=== PATIENT | male | born 1985 | race Two or more races ===

== ENCOUNTER 2024-11-21 12:47 | Emergency (ER) | payer MEDICAID, OTHER ==
[~2024-11-21] VITALS: Ht 180.3 cm; Wt 98.9 kg
--- NOTE | 2024-11-21 13:36 | ED.PDOC ---
History of Present Illness HPI Comments This is a 39 year-old male who presents to the ED with a chief complaint of ETOH withdrawal with associated symptoms of palpitations and dizziness as of today. Patient states he drinks X3 21 packs of beer daily. Patient reports he tried to stop drinking and failed. Patient has no further complaints at this time and otherwise denies N/V/D, fever, chills, weakness, headache, chest pain, or SOB. Chief Complaint: Withdrawal Time Seen by MD: 13:18 Reviewed Notes: Nurses Notes, Medications, Allergies Allergies: Coded Allergies: Chlordiazepoxide (Verified Allergy, Unknown, 11/21/24) Information Source: Patient Mode of Arrival: Ambulatory Severity: Moderate Timing: Hours Duration: Since onset Prehospital treatment: None Past Medical History PAST MEDICAL HISTORY: Denies Surgical History: Denies all surgeries Family History Family History: Reviewed,noncontributory to illness, No family hx of Cancer, No family hx of DM, No family hx of Heart mariela, No family hx of HTN, No family hx ofKidney mariela, No family hx of Liver mariela, No family hx of Lung mariela, No family hx of Stroke Social History Smoker: Cigarettes Alcohol: Heavy Drugs: Marijuana Lives In: Home Constitutional: denies: chills, diaphoresis, fatigue, fever, malaise, sweats, weakness, others EENTM: denies: blurred vision, double vision, ear bleeding, ear discharge, ear drainage, ear pain, ear ringing, eye pain, eye redness, hearing loss, mouth pain, mouth swelling, nasal discharge, nose bleeding, nose congestion, nose pain, photophobia, tearing, throat pain, throat swelling, voice changes, others Respiratory: denies: cough, hemoptysis, orthopnea, SOB at rest, shortness of breath, SOB with excertion, stridor, wheezing, others Cardiovascular: reports: palpitations; denies: chest pain, dizzy spells, diaphoresis, Dyspnea on exertion, edema, irregular heart beat, left arm pain, lightheadedness, PND, syncope, others Gastrointestinal: denies: abdomen distended, abdominal pain, blood streaked bowels, constipated, diarrhea, dysphagia, difficulty swallowing, hematemesis, melena, nausea, poor appetite, poor fluid intake, rectal bleeding, rectal pain, vomiting, others Genitourinary: denies: burning, dysuria, flank pain, frequency, hematuria, incontinence, penile discharge, penile sore, pain, testicle pain, testicle swelling, urgency, others Neurological: reports: dizziness; denies: fainting, headache, left sided n umbness, left sided weakness, numbness, paresthesia, pre-existing deficit, right sided numbness, right sided weakness, seizure, speech problems, tingling, tremors, weakness, others Musculoskeletal: denies: back pain, gout, joint pain, joint swelling, muscle pain, muscle stiffness, neck pain, others Integumetry: denies: bruises, change in color, change in hair/nails, dryness, laceration, lesions, lumps, rash, wounds, others Allergic/Immunocompromised: denies: Difficulty Healing, Frequent Infections, Hives, Itching, others Hematologic/Lymphatic: denies: anemia, blood clots, easy bleeding, easy bruising, swollen glands, others Endocrine: denies: excessive hunger, excessive sweating, excessive thirst, excessive urination, flushing, intolerance to cold, intolerance to heat, unexpl ained weight gain, unexplained weight loss, others Psychiatric: reports: others (Withdrawal ); denies: anxiety, bipolar disorder, depression, hopeless, panic disorder, schizophrenia, sleepless, suicidal All Other Systems: Reviewed and Negative Physical Exam General Appearance: Moderate Distress HEENT: Normal ENT Inspection, Pharynx Normal, TMs Normal Neck: Full Range of Motion, Non-Tender, Normal, Normal Inspection Respiratory: Chest Non-Tender, Lungs Clear, No Accessory Muscle Use, No Respiratory Distress, Normal Breath Sounds Cardiovascular: No Edema, No JVD, No Murmur, No Gallop, Normal Peripheral Pulses, Regular Rate/Rhythm Breast Exam: Deferred Gastrointestinal: No Organomegaly, Non Tender, No Pulsatile Mass, Normal Bowel Sounds, Soft Genitalia: Deferred Pelvic: Deferred Rectal: Deferred Extremities: No calf tenderness, Normal capillary refill, Normal inspection, Normal range of motion, Non-tender, No pedal edema Musculoskeletal : Apperance: Normal Neurologic: Alert, frame changer II-XII nml as Tested, No Motor Deficits, Normal Affect, Normal Mood, No Sensory Deficits Cerebellar Function: Normal Reflexes: Normal Skin: Dry, Normal Color, Warm Peripheral Pulses: 3+ Radial (R), 3+ Radial (L) Lymphatic: No Adenopathy Was a procedure done? Was a procedure done?: No Differential Dx Considerations may include: Anxiety, Withdrawal Symptoms X-Ray, Labs, Meds, VS Vital Signs Date Time Temp Pulse Resp B/P (MAP) Pulse Ox O2 Delivery O2 Flow Rate FiO2 11/21/24 13:07 91 11/21/24 12:53 97.6 103 16 117/75 96 97.6 Lab Test 11/21/24 13:13 Range/Units White Blood Count 6.3 4.4-10.8 10^3/uL Red Blood Count 5.25 4.5-5.90 10^6/uL Hemoglobin 15.5 13.5-17.5 g/dL Hematocrit 47.4 41.0-53.0 % Mean Corpuscular Volume 90.3 80.0-100.0 fL Mean Corpuscular Hemoglobin 29.5 28.0-32.0 pg Mean Corpuscular Hemoglobin Concent 32.7 32.0-36.0 g/dL Red Cell Distribution Width 14.9 H 11.8-14.3 % Platelet Count 257 140-450 10^3/uL Mean Platelet Volume 7.4 6.9-10.8 fL Neutrophils (%) (Auto) 64.9 37.0-80.0 % Lymphocytes (%) (Auto) 28.3 10.0-50.0 % Monocytes (%) (Auto) 6.3 0.0-12.0 % Eosinophils (%) (Auto) 0.1 0.0-7.0 % Basophils (%) (Auto) 0.4 0.0-2.0 % Neutrophils # (Auto) 4.1 1.6-8.6 10 ^3/uL Lymphocytes # (Auto) 1.8 0.4-5.4 10 ^3/uL Monocytes # (Auto) 0.4 0-1.3 10 ^3/uL Eosinophils # (Auto) 0 0-0.8 10 ^3/uL Basophils # (Auto) 0 0-0.2 10 ^3/uL Nucleated Red Blood Cells 0.1 % Sodium Level 140 136-145 mmol/L Potassium Level 4.0 3.5-5.1 mmol/L Chloride Level 102 98-107 mmol/L Carbon Dioxide Level 27 20-31 mmol/L Anion Gap 11 5-15 Blood Urea Nitrogen < 5 L 9-23 mg/dL Creatinine 0.87 0.700-1.30 mg/dL Glomerular Filtration Rate Calc 113 >90 mL/min BUN/Creatinine Ratio 5.7 L 10.0-20.0 Serum Glucose 142 H 74-106 mg/dL Calcium Level 9.1 8.7-10.4 mg/dL Plasma/Serum Blood Alcohol 167.6 H <10 mg/dL Current Medications Medications (Trade) Dose Ordered Sig/Tiffany Route Start Time Stop Time Status Last Admin Sodium Chloride 1,000 ml @ 1,000 mls/hr Q1H ONCE IV 11/21/24 13:00 11/21/24 13:59 DC 11/21/24 15:53 Sodium Chloride 1,000 ml @ 150 mls/hr Q6H40M ONCE IV 11/21/24 13:00 11/21/24 19:39 11/21/24 15:57 Thiamine HCl 100 mg ONCE ONCE IV 11/21/24 13:45 11/21/24 13:46 DC 11/21/24 15:57 Patient alert. Vitals stable. Has been drinking. Answering all questions. Blood alcohol level elevated. Establish intravenous access. Was given fluids. Was given thiamine. Blood sugar slightly elevated. WBC within normal limits. Hemoglobin within normal limits. Neurological exam pristine. Denies shortness a breath. No leg swelling. No chest pain. Counseled patient on effects of drinking for 15 minutes. Was told to follow up with his primary care physician. Was told to come back if there is any problem. Images Reviewed?: Images reviewed and evaluated by me Time of 1ST Reevaluation: 14:05 Reevaluation 1ST: Unchanged Patient Education/Counseling: Diagnosis, Treatment Family Education/Counseling: No Family Present Medical Screening: No EMC Exist At This Time SEPSIS Sepsis Screen Date sepsis recognized/suspect: Nov 21, 2024 Time Sepsis recognized/suspect: 1253 Recent Procedure: No On Antibiotic Therapy: No Respiratory Rate >20: No Heart Rate >90: Yes Temp<36 C (96.8 F) or >38.3 C: No SBP <90 or MAP <65 mmHG: No New Acute Mental Status Change: No Is the patient on CPAP, BIPAP,: No Physician Orders Urinalysis (11/21/24 12:54) Sodium Chloride 0.9% (11/21/24 13:00) Electrocardigram (11/21/24 13:11) Vital Signs Date Time Temp Pulse Resp B/P (MAP) Pulse Ox O2 Delivery O2 Flow Rate FiO2 11/21/24 13:07 91 11/21/24 12:53 97.6 103 16 117/75 96 97.6 Laboratory Tests Test 11/21/24 13:13 White Blood Count 6.3 10^3/uL (4.4-10.8) Medications Medications Dose Ordered Sig/Tiffany Route Start Time Stop Time Status Last Admin Dose Admin Sodium Chloride 1,000 ml @ 150 mls/hr Q6H40M ONCE IV 11/21/24 13:00 11/21/24 19:39 11/21/24 15:57 Sodium Chloride 1,000 ml @ 1,000 mls/hr Q1H ONCE IV 11/21/24 13:00 11/21/24 13:59 DC 11/21/24 15:53 Thiamine HCl 100 mg ONCE ONCE IV 11/21/24 13:45 11/21/24 13:46 DC 11/21/24 15:57 Departure 1 Departure Time of Disposition: 16:39 Impression: Primary Impression: Alcohol abuse Additional Impression: Hyperglycemia Disposition: 01 HOME / SELF CARE / HOMELESS Condition: Good Discharged With: Self Critical Care Note Critical Care Time?: No Stability Stability form required: No Heart Score Heart Score: Heart Score Response (Comments) Value History N/A 0 EKG N/A 0 Age N/A 0 Risk Factors N/A 0 Troponin N/A 0 Total 0 I personally scribed for VENUS VANCE MD ([email or web address]) on 11/21/24 at 13:36. Electronically submitted by Stella Zhu ([facility]). VENUS VANCE MD Nov 21, 2024 13:36
[2024-11-21 13:38] LABS: Hematocrit 47.4 % (41.0-53.0); Hemoglobin 15.5 g/dL (13.5-17.5); Mean Corpuscular Hemoglobin 29.5 pg (28.0-32.0); Mean Corpuscular Volume 90.3 fL (80.0-100.0); Nucleated Red Blood Cells % 0.1 %
[2024-11-21 13:41] LABS: Chloride 102 mmol/L (98-107); Potassium 4.0 mmol/L (3.5-5.1); Sodium 140 mmol/L (136-145)
[2024-11-21 13:42] LABS: Anion Gap 11 (5-15); Calcium 9.1 mg/dL (8.7-10.4); Carbon Dioxide 27 mmol/L (20-31)
[2024-11-21 13:50] LABS: BUN/Creatinine Ratio 5.7 (10.0-20.0); Blood Urea Nitrogen < 5 mg/dL (9-23); Glucose 142 mg/dL (74-106)
[2024-11-21] MEDS: SODIUM CHLORIDE 0.9% 1,000 ML IV ONE ×2 (15:53→15:57)
[2024-11-21] MEDS: THIAMINE 100mg/ml INJ (200mg/2ml VIAL) IV ONE (15:57)
[2024-11-21 17:10] VITALS: BP 125/88; PULSE 108; RESP 18; TEMP 98.3; O2SAT 98
[2024-11-21] MEDS: LORazepam 2MG/ML-1ML VIAL IV ONE (17:47)
[2024-11-21 18:17] LABS: Urine Protein, UAD Negative (Negative)
--- NOTE | 2024-11-21 19:09 | ECG ---
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
[2024-11-22] MEDS: LORazepam 2MG/ML-1ML VIAL ONE (03:32)
== END 2024-11-22 08:14 | disposition left against medical advice (07) ==
LOC: ER 12:47
DX: F10.10 Alcohol abuse, uncomplicated (principal); R73.9 Hyperglycemia, unspecified; F17.210 Nicotine dependence, cigarettes, uncomplicated; Z79.899 Other long term (current) drug therapy; Y90.9 Presence of alcohol in blood, level not specified
CPT/HCPCS: 36415; 80048; 80320; 81001; 85025; 93005; 96361; 96374; 96375; 99284; J2060; J3411; J7030